=== PATIENT | male | born 1995 | race Caucasian/White ===

== ENCOUNTER 2022-08-08 16:01 | Emergency (ER) | payer SELFPAY ==
[~2022-08-08] VITALS: Ht 180.3 cm; Wt 90.7 kg
[2022-08-08 16:26] VITALS: BP 120/96
[2022-08-08] MEDS ORDERED: NACL 0.9% 1,000 ML IV SCH (17:00)
[2022-08-08] MEDS ORDERED: KETOROLAC 30 MG/ML VIAL IVP ONE (17:00)
[2022-08-08 17:36] LABS: BASOPHILS % (AUTO) 0.4 % (0.0-2.0); EOSINOPHILS % (AUTO) 0.2 % (0.0-4.0); HEMATOCRIT 48.5 % (36-52); HEMOGLOBIN 16.7 g/dL (12.0-18.0); LYMPHOCYTES # (AUTO) 0.7 K/uL (2.0-11.5); LYMPHOCYTES % (AUTO) 6.5 % (20.5-51.1); MEAN CORPUSCULAR HEMOGLOBIN 30 pg (27-31); MEAN CORPUSCULAR HGB CONC 34 g/dL (33-37); MEAN CORPUSCULAR VOLUME 88.3 fL (80-94); MONOCYTES # (AUTO) 0.6 K/uL (0.8-1.0); MONOCYTES % (AUTO) 5.5 % (1.7-9.3); NEUTROPHILS # (AUTO) 8.9 K/uL (1.8-7.7); NEUTROPHILS % (AUTO) 87.4 % (42.2-75.2); PLATELET COUNT (AUTO) 206 K/uL (140-450); RED BLOOD CELL COUNT(AUTO) 5.49 MIL/uL (4.20-6.10); RED CELL DISTRIBUTION WIDTH 13.3 % (11.6-13.7); WHITE BLOOD COUNT (AUTO) 10.2 K/uL (4.8-10.8)
--- NOTE | 2022-08-08 17:57 | NUR ---
PT AMB TO BED 7
[2022-08-08 17:59] LABS: ALBUMIN 4.4 g/dL (3.4-5.0); ANION GAP 15.4 (8-16); CARBON DIOXIDE 26.4 mmol/L (21-32); CREATININE 1.3 mg/dL (0.6-1.3); POTASSIUM 3.8 mmol/L (3.5-5.1); TOTAL BILIRUBIN 0.5 mg/dL (0.0-1.0)
[2022-08-08] MEDS ORDERED: KETOROLAC 30 MG/ML VIAL ONE (18:01)
--- NOTE | 2022-08-08 18:10 | NUR ---
27YO MALE PT C/O SHARP 10/10 L FLANK PAIN [id number]. REPORTS SUDDEN CONSTANT ONSET WHILE AT WORK AND VOMITX1, DENIES BLOOD. NOTES DYSURIA, URGENCY AND HESITANCY. BACK NON TENDER TO TOUCH. DENIES TAKING MEDICATION FOR PAIN , DIARRHEA, CHEST PAIN, SOB, FEVER OR CHILLS. PT AAOX4, RESPIRATIONS EVEN AND UNLABORED. HOB POSITIONED PER COMFORT HX:DENIES NKA
[2022-08-08 18:27] LABS: APPEARANCE,URINE HAZY (CLEAR); BILIRUBIN,URINE 1+ (NEGATIVE); BLOOD, URINE 3+ (NEGATIVE); COLOR,URINE BROWN (YELLOW); LEUKOCYTE ESTERASE ,URINE NEGATIVE (NEGATIVE); NITRITE, URINE NEGATIVE (NEGATIVE); UGLUCOSE NEGATIVE (NEGATIVE)
[2022-08-08 18:30] LABS: RBC,URINE 11-20 (MOD) /HPF (0-5)
[2022-08-08 18:31] LABS: CALCIUM OXALATE CRYSTALS,UR 0-10 /HPF (None Seen)
--- NOTE | 2022-08-08 19:29 | NUR ---
REPORT GIVEN TO MKIHAIL HENRIQUEZ. TRANSFER OF CARE AT THIS TIME
[2022-08-08] MEDS ORDERED: CEFP200T20 PO (19:33)
[2022-08-08] MEDS ORDERED: ACET-8386 PO (19:33)
[2022-08-08] MEDS ORDERED: IBUP-2213 PO (19:33)
[2022-08-08 19:43] VITALS: BP 120/96
--- NOTE | 2022-08-08 19:43 | NUR ---
Patient discharged with v/s stable. Written and verbal after care instructions given and explained. Patient alert, oriented and verbalized understanding of instructions. Ambulatory with steady gait. All questions addressed prior to discharge. ID band removed. Patient advised to follow up with PMD. Rx of SYDROCODONE CEFPODOXIME PROXETIOL IBUPROFEN given.
== END 2022-08-08 19:43 | disposition home or self-care (01) ==
LOC: MED 16:01
DX: N20.0 Calculus of kidney (principal); N39.0 Urinary tract infection, site not specified; R11.2 Nausea with vomiting, unspecified
CPT/HCPCS: 36415; 74176; 80053; 81001; 83690; 85025; 87086; 96361; 96374; 99284; J1885; J7030